=== PATIENT | female | born 1970 | race Two or more races ===

== ENCOUNTER 2021-09-02 12:06 | Inpatient (IN) | payer OTHER ==
[~2021-09-02] VITALS: Ht 160 cm; Wt 71.7 kg
[2021-09-02] MEDS ORDERED: DAFLONEX-XL 11300 MG PO (13:44)
== END 2021-09-09 13:53 | disposition home or self-care (01) | DRG 743 ==
LOC: O/R 09-08 07:40 → SURH 09-08 13:00 → OB/GYN 09-08 15:51
PROVIDERS: Surgery; ADMIT Obstetrics & Gynecology Gynecology; ATTEND Obstetrics & Gynecology Gynecology
PROC: 0UT24ZZ Resection of Bilateral Ovaries, Percutaneous Endoscopic Approach (ICD-10-PCS; 2021-09-08)
PROC: 0DNW4ZZ Release Peritoneum, Percutaneous Endoscopic Approach (ICD-10-PCS; 2021-09-08)
PROC: 0UNF4ZZ Release Cul-de-sac, Percutaneous Endoscopic Approach (ICD-10-PCS; 2021-09-08)
PROC: 0UN94ZZ Release Uterus, Percutaneous Endoscopic Approach (ICD-10-PCS; 2021-09-08)
PROC: 0DBW3ZZ Excision of Peritoneum, Percutaneous Approach (ICD-10-PCS; 2021-09-08)
PROC: 0UT94ZZ Resection of Uterus, Percutaneous Endoscopic Approach (ICD-10-PCS; principal; 2021-09-08 15:00)
PROC: 0UT74ZZ Resection of Bilateral Fallopian Tubes, Percutaneous Endoscopic Approach (ICD-10-PCS; 2021-09-08 15:00)
DX: N80.0 Endometriosis of uterus (principal); N80.2 Endometriosis of fallopian tube; N80.5 Endometriosis of intestine; N80.1 Endometriosis of ovary; N80.3 Endometriosis of pelvic peritoneum; N83.292 Other ovarian cyst, left side; N83.291 Other ovarian cyst, right side; N83.11 Corpus luteum cyst of right ovary; N83.02 Follicular cyst of left ovary; K66.0 Peritoneal adhesions (postprocedural) (postinfection); Z20.822 Contact with and (suspected) exposure to COVID-19